=== PATIENT | male | born 1950 | race Caucasian/White ===

== ENCOUNTER 2019-04-09 18:05 | Emergency (ER) | payer OTHER ==
[~2019-04-09] VITALS: Ht 182.9 cm; Wt 120.2 kg
[2019-04-09] MEDS ORDERED: FENOFIBRATE145 M1 PO (18:43)
[2019-04-09] MEDS ORDERED: LOPRESSOR50 PO (18:43)
[2019-04-09] MEDS ORDERED: LIPITOR 20 MG T20 M1 PO (18:43)
[2019-04-09] MEDS ORDERED: OMEGA 3 FISH O1 EACH PO (18:44)
[2019-04-09] MEDS ORDERED: LISINOPRIL20 MG PO (18:44)
[2019-04-09 20:38] VITALS: BP 121/73
== END 2019-04-09 20:39 | disposition home or self-care (01) ==
LOC: ER 18:05
DX: R07.0 Pain in throat (principal); I10 Essential (primary) hypertension; Z96.659 Presence of unspecified artificial knee joint; Z95.5 Presence of coronary angioplasty implant and graft